=== PATIENT | male | born 1975 ===

== ENCOUNTER 2020-05-07 22:16 | Emergency (ER) | payer MEDICAID, OTHER ==
[2020-05-07 22:26] VITALS: BP 147/102; PULSE 108
--- NOTE | 2020-05-07 22:38 | EDM.PDOC ---
ED HPI GENERAL MEDICAL PROBLEM - General Chief Complaint: ENT Problem Stated Complaint: CHILLS/LEFT NOSTRIL HURTS Time Seen by Provider: 05/07/20 22:38 Source of Information: Reports: Patient, RN, RN Notes Reviewed History Limitations: Reports: No Limitations - History of Present Illness INITIAL COMMENTS - FREE TEXT/NARRATIVE: Patient presents to ER with complaint of right nostril/right maxillary sinus pain. Patient states he has had a runny nose for the past week to 2 weeks. Denies headache, states is unsure if he has had a fever, admits to chills. Patient denies nausea or vomiting. Denies sore throat. States he has had sinus infections in the past for which antibiotics have been prescribed and this has helped. Onset: Today, Sudden Right Nose Pain Score (Numeric/FACES): 8 - Related Data Allergies Allergy/AdvReac Type Severity Reaction Status Date / Time No Known Allergies Allergy Verified 05/07/20 22:26 Home Meds: Home Meds lisinopriL [Lisinopril] 10 mg PO DAILY 05/07/20 [History] Past Medical History - Past Health History Medical/Surgical History: Denies Medical/Surgical History Cardiovascular History: Reports: Hypertension Social & Family History - Tobacco Use Smoking Status *Q: Never Smoker Second Hand Smoke Exposure: No - Recreational Drug Use Recreational Drug Use: No ED ROS ENT - Review of Systems Review Of Systems: Comprehensive ROS is negative, except as noted in HPI. ED EXAM, ENT - Physical Exam Exam: See Below Exam Limited By: No Limitations General Appearance: Alert, WD/WN, No Apparent Distress Eye Exam: Bilateral Eye: EOMI, Normal Inspection Ears: Normal External Exam, Normal Canal, Hearing Grossly Normal, TM Dullness Nose: Normal Inspection, No Blood, Injected Turbinates Mouth/Throat: Normal Inspection, Normal Gums, Normal Lips, Normal Oropharynx, Normal Teeth Head: Atraumatic, Normocephalic, Other (Right maxillary tenderness upon palpation) Neck: Normal Inspection, Supple, Non-Tender, Full Range of Motion Respiratory/Chest: No Respiratory Distress, Lungs Clear, Normal Breath Sounds, No Accessory Muscle Use, Chest Non-Tender Cardiovascular: Normal Peripheral Pulses, Regular Rate, Rhythm, No Edema, No Gallop, No JVD, No Murmur, No Rub GI/Abdominal: Normal Bowel Sounds, Soft, Non-Tender, No Organomegaly, No Distention, No Abnormal Bruit, No Mass (Male) Exam: Deferred Rectal (Males) Exam: Deferred Back: Normal Inspection, Full Range of Motion Extremities: Normal Inspection, Normal Range of Motion, Non-Tender, No Pedal Edema, Normal Capillary Refill Neurological: Alert, Oriented, CN II-XII Intact, Normal Cognition, Normal Gait, Normal Reflexes, No Motor/Sensory Deficits Psychiatric: Normal Affect, Normal Mood Skin: Warm, Dry, Intact, Normal Color, No Rash Lymphatic: No Adenopathy Course - Vital Signs Last Recorded V/S: Last Vital Signs Temp 97.6 F 05/07/20 22:22 Pulse 108 H 05/07/20 22:22 Resp 18 05/07/20 22:22 BP 147/102 H 05/07/20 22:22 Pulse Ox 96 05/07/20 22:22 - Orders/Labs/Meds Meds: Medications Discontinued Medications Generic Name Dose Route Start Last Admin Trade Name Freq PRN Reason Stop Dose Admin Amoxicillin/Clavulanate Potassium 1 tab 05/07/20 22:44 05/07/20 22:50 Augmentin 875 Mg/125 Mg PO 05/07/20 22:45 1 tab ONETIME ONE Administration Departure - Departure Time of Disposition: 22:51 Disposition: Home, Self-Care 01 Condition: Good Clinical Impression: Sinusitis Qualifiers: Sinusitis location: maxillary Chronicity: acute Recurrence: recurrent Qualified Code(s): J01.01 - Acute recurrent maxillary sinusitis - Discharge Information *PRESCRIPTION DRUG MONITORING PROGRAM REVIEWED*: No *COPY OF PRESCRIPTION DRUG MONITORING REPORT IN PATIENT JAE: No Instructions: Sinusitis, Adult, [id number], How to Perform a Sinus Rinse, [id number] Forms: ED Department Discharge Additional Instructions: RX: Augmentin May use over the counter Sudafed as directed Use Tylenol and/or ibuprofen as directed for pain May use sinus rinse as described in instructions Follow-up with your primary care provider if no improvement Sepsis Event Note (ED) - Evaluation Sepsis Screening Result: No Definite Risk - Focused Exam Vital Signs: Vital Signs Temp Pulse Resp BP Pulse Ox 05/07/20 22:22 97.6 F 108 H 18 147/102 H 96
[2020-05-07] MEDS ORDERED: Amoxicillin/Clavulanate K 875-125 MG Tab PO ONE (22:44)
== END 2020-05-07 22:57 | disposition home or self-care (01) ==
LOC: DL.ED 22:16
DX: J01.01 Acute recurrent maxillary sinusitis (principal); I10 Essential (primary) hypertension; Z79.899 Other long term (current) drug therapy
CPT/HCPCS: 99283; A9270

== ENCOUNTER 2023-08-31 23:43 | Emergency (ER) | payer MEDICAID ==
[2023-09-01] MEDS ORDERED: Sodium Chloride 0.9% 10 ML Syringe FLUSH PRN (00:09)
[2023-09-01] MEDS ORDERED: Sodium Chloride 0.9% 1,000 ML IV ONE (00:12)
[2023-09-01 00:35] LABS: BASOPHILS PERCENT AUTO 0.2 % (0.0-1.0); EOSINOPHILS PERCENT AUTO 0.1 % (1.0-3.0); HEMATOCRIT 47.3 % (40.0-54.0); HEMOGLOBIN 15.6 g/dL (14.0-18.0); LYMPHOCYTES PERCENT AUTO 12.3 % (20.5-50.1); MEAN CORPUSCULAR HEMOGLOBIN 29.8 pg (27.0-34.0); MEAN CORPUSCULAR VOLUME 90.3 fL (80-100); MONOCYTES PERCENT AUTO 7.1 % (2-8); NEUTROPHILS PERCENT AUTO 80.3 % (42.2-75.2); PLATELET COUNT,PLT 234 10^3/uL (150-450); RED BLOOD CELL COUNT 5.24 10^6/uL (4.6-6.2); WHITE BLOOD CELL COUNT,WBC 13.2 10^3/uL (5.0-10.0)
[2023-09-01] MEDS ORDERED: Azithromycin 250 MG Tab PO ONE (00:42)
[2023-09-01] MEDS ORDERED: cefTRIAXone 2 GM Vial IVPUSH ONE (00:43)
[2023-09-01 00:46] LABS: ANION GAP 14.3 mEq/L (7-13); CARBON DIOXIDE,CO2 25 mmol/L (21-32); CHLORIDE,CL 101 mmol/L (98-107); GLUCOSE RANDOM 127 mg/dL (70-99); POTASSIUM,K 4.3 mmol/L (3.5-5.1); SODIUM,NA 136 mmol/L (136-145)
[2023-09-01 00:47] LABS: A/G RATIO 0.9; ALANINE AMINOTRANSFERASE,ALT 36 U/L (16-63); ALKALINE PHOSPHATASE 169 U/L (46-116); ASPARTATE AMNIOTRANSFERASE,AST 22 U/L (15-37); BILIRUBIN TOTAL 0.7 mg/dL (0.2-1.0); BLOOD UREA NITROGEN,BUN 11 mg/dL (7-18); BUN/CREATININE RATIO 8.9 (No establ ref range); C-REACTIVE PROTEIN 6.07 ng/dL (<=0.30); CALCIUM 9.1 mg/dL (8.5-10.1); CREATININE 1.24 mg/dL (0.70-1.30); EST CRCL DRUG DOSING (CG) 67.17 mL/min; ESTIMATED GFR 73 mL/min (>=60); MAGNESIUM 1.7 mg/dL (1.8-2.4); PROTEIN TOTAL,TP 8.6 g/dL (6.4-8.2)
[2023-09-01 00:50] LABS: LACTIC ACID 1.1 mmol/L (0.4-2.0)
[2023-09-01 01:00] LABS: B-TYPE NATRIURETIC PEPTIDE,BNP < 5 pg/ml (0-100)
[2023-09-01 01:42] VITALS: BP 131/67; PULSE 101
== END 2023-09-01 01:35 | disposition home or self-care (01) ==
LOC: DL.ED 23:43
DX: J18.9 Pneumonia, unspecified organism (principal); Z79.899 Other long term (current) drug therapy
CPT/HCPCS: 36415; 71046; 80053; 83605; 83735; 83880; 84145; 84484; 85025; 86140; 87040; 93005; 93010; 96374; 99284; 99285-25; A9270-GY; J0696; J3490; J7030

== ENCOUNTER 2024-06-14 22:23 | Emergency (ER) | payer MEDICAID ==
[2024-06-15 00:18] LABS: BASOPHILS PERCENT AUTO 0.2 % (0.0-1.0); EOSINOPHILS PERCENT AUTO 0.1 % (1.0-3.0); HEMATOCRIT 46.1 % (40.0-54.0); HEMOGLOBIN 15.5 g/dL (14.0-18.0); LYMPHOCYTES PERCENT AUTO 11.7 % (20.5-50.1); MEAN CORPUSCULAR HEMOGLOBIN 29.8 pg (27.0-34.0); MEAN CORPUSCULAR HGB CONC 33.6 g/dL (33.0-35.0); MEAN CORPUSCULAR VOLUME 88.7 fL (80-100); MONOCYTES PERCENT AUTO 8.9 % (2-8); NEUTROPHILS PERCENT AUTO 79.1 % (42.2-75.2); PLATELET COUNT,PLT 208 10^3/uL (150-450)
[2024-06-15 00:35] LABS: A/G RATIO 0.8; ALBUMIN 3.5 g/dL (3.4-5.0); ANION GAP 16.7 mEq/L (7-13); BILIRUBIN TOTAL 0.4 mg/dL (0.2-1.0); BUN/CREATININE RATIO 20.8 (No establ ref range); C-REACTIVE PROTEIN 21.33 ng/dL (<=0.50); CALCIUM 9.1 mg/dL (8.5-10.1); CREATININE 1.06 mg/dL (0.70-1.30); EST CRCL DRUG DOSING (CG) 77.74 mL/min; POTASSIUM,K 3.7 mmol/L (3.5-5.1); PROTEIN TOTAL,TP 8.1 g/dL (6.4-8.2)
[2024-06-15] MEDS ORDERED: Sodium Chloride 0.9% 1,000 ML IV ONE (00:54)
[2024-06-15] MEDS: Acetaminophen 325 MG Tab PO ONE (01:13)
[2024-06-15] MEDS: Diphtheria,Pertussis(Acell),Tetanus Vaccine 0.5 ML Syringe IM ONE (01:14)
[2024-06-15] MEDS: Clindamycin in 0.9 % Sod Chlor 900 MG in Premix Bag 1 BAG IV ONE (01:14)
[2024-06-15] MEDS: Sodium Chloride 0.9% 2,000 ML IV ONE (01:14)
[2024-06-15 02:59] VITALS: BP 148/90; PULSE 94
== END 2024-06-15 01:36 ==
LOC: DL.ED 22:23
DX: L03.115 Cellulitis of right lower limb (principal); I10 Essential (primary) hypertension; Z23 Encounter for immunization
CPT/HCPCS: 36415; 80053; 83605; 85025; 86140; 87040; 90471; 90715; 96365; 99284; A9270; J3490; J7030